=== PATIENT | female | born 1940 | race Caucasian/White ===

== ENCOUNTER 2025-04-02 13:03 | Emergency (ER) | payer OTHER, SELFPAY ==
[2025-04-02 13:05] VITALS: BP 153/80; PULSE 82; RESP 14; TEMP 36.9; O2SAT 99; BMI 21.7
--- NOTE | 2025-04-02 14:00 | CT_ITS ---
PROCEDURE: ABDOMEN/PELVIS W IV CONT ONLY 04/02/2025 REASON FOR EXAM: CONSTIAPTION, RECTAL PAIN TECHNIQUE: Procedure Code: [id number] Modality: CT Procedure: ABDOMEN/PELVIS W IV CONT ONLY Coronal and Sagittal reconstruction series were provided. CONTRAST: Isovue 370 VOLUME: 83 mL One or more dose reduction techniques were used (e.g., Automated exposure control, adjustment of the mA and/or kV according to patient size, use of iterative reconstruction technique. RADIATION DOSE SUMMARY: CTDlvol: 18.62 mGy DLP: 814.03 mGycm COMPARISON: None. FINDINGS: Lung bases: Clear. Liver: Unremarkable. Gallbladder: Status post cholecystectomy. Spleen: Unremarkable. Pancreas: Unremarkable. Adrenals: Unremarkable. Kidneys: Bilateral simple kidney cysts with the largest measures 11 mm at the upper pole of the right kidney. No hydronephrosis. No nephrolithiasis. Bladder: Unremarkable. Reproductive Organs: Bowel: Large amount of fecal load in the colon. No bowel wall thickening. Appendix: Unremarkable. Lymph nodes: No lymphadenopathy. Vasculature: Atherosclerotic calcifications of the aorta and iliac arteries. No aneurysm. Peritoneum / Retroperitoneum: No free air or free fluid. Bones: Multilevel degenerate changes of the lumbar spine. No acute bony abnormalities. CT/Abdomen/Pelvis W IV Cont ONLY IMPRESSION: No acute abdominopelvic abnormalities. Reading Location: [facility]
[2025-04-02 14:38] LABS: Hematocrit 36.4 % (37-47); Hemoglobin 11.8 g/dL (12.0-15.0); Immature Granulocytes Count 0.030 X10^3/uL (0.0-0.0); Mean Corp Hgb Conc 32.4 g/dL (32-36); Mean Corpuscular Volume 94.1 fL (81-99); Mean Platelet Vol. 10.1 fl (6.2-12.0); NRBC Flagged by Analyzer 0 % (0-5); Platelet Count 271 K/mm3 (150-450); RBC Distribution Width CV 14.7 % (11.6-14.6); RBC Distribution Width SD 51.1 fl (35.1-43.9); Red Blood Count 3.87 M/mm3 (4.2-5.4); White Blood Count 10.0 K/mm3 (4.4-11.0)
[2025-04-02 14:57] LABS: AST(SGOT) 15 U/L (<=31); Alanine Aminotransfer ALT/SGPT 7 U/L (<=34); Albumin, Serum 3.9 g/dL (3.4-4.8); Alkaline Phosphatase 55 U/L (35-104); Anion Gap 11 (5-15); BUN 10 mg/dL (4-19); BUN/Creat Ratio 22.9 RATIO (10-20); Calcium,Total 10.1 mg/dL (7.6-11.0); Carbon Dioxide 23.7 mmol/L (21.0-32.0); Chloride 105 mmol/L (98-108); Estimated Creatinine Clearance 47.25 ml/min (50-250); Globulin 3.8 g/dL (2.2-4.2); Glucose 86 mg/dL (70-99); Potassium 3.9 mmol/L (3.3-5.1)
[2025-04-02 15:04] VITALS: BP 179/78; PULSE 68; RESP 18; O2SAT 98
--- NOTE | 2025-04-02 16:20 | EX.ED.DYSGE1 ---
HPI History of Present Illness Chief Complaint: Other, Pain/Inj Informant: patient and family Narrative Narrative: Patient is an 84-year-old female presenting with constipation and rectal pain/pressure. She also she is having some mild right sided flank pain with this. States her last bowel movement is a week and a half ago. Notes she had a recent admission at [facility] for constipation and partial small bowel obstruction. Her hospital course was complicated by urinary retention however this was treated with decompression, enterocolitis which improved with treatment in the ER and a lower GI bleed that was stable. Patient states since being discharged (02/24/2025), she has only intermittently taken her MiraLAX and has not been taking it daily. She notes that she was also tried to take Pepto-Bismol 3 times a day for 2 weeks for the enterocolitis that was seen on her CT. Patient denies any fever or chills currently but that she maybe had a fever yesterday. States that her pain started this morning. Denies any vaginal bleeding. Denies any nausea or vomiting. Denies any urinary symptoms. Believes that she has had her gallbladder removed in the past. PFSH PFSH Allergy/AdvReac Type Severity Reaction Status Date / Time No Known Allergies Allergy Verified 04/02/25 13:08 Social History Smoking Status: Never smoker ROS ROS ED Constitutional Constitutional ED: Reports fever(s); Denies chills Gastrointestinal Gastrointestinal: Reports abdominal pain, constipation and other Details: Rectal pain ; Denies melena, nausea or vomiting Genitourinary Genitourinary ED: Denies dysuria or hematuria Neurologic Neurologic: Denies weakness Psychiatric Psychiatric: Denies anxiety Hematologic/Lymphatic Hematologic/Lymphatic: Denies easy bleeding or easy bruising EXAM Physical Exam Const Vital Signs: 04/02/25 13:05 04/02/25 15:04 Temperature 98.4 F Temperature Source Oral Pulse Rate 82 68 Respiratory Rate 14 18 Blood Pressure 153/80 H 179/78 H Blood Pressure Mean 104 111 Pulse Ox 99 98 Oxygen Delivery Method Room Air Room Air Positive well nourished and well developed General Appearance ED: well developed and NAD HEENT Reports moist mucous membranes Neck supple Resp normal respiratory effort and clear to auscultation bilaterally Cardio regular rate and regular rhythm GI normal to inspection, nondistended, normoactive bowel sounds and non-tender GI Narrative: Chaperoned rectal exam performed. Patient has fecal impaction a large amount of dark/green stool was removed. No hemorrhoids or bright red blood present. No palpable abscess or fluctuance appreciated. Auscultation: hyperactive bowel sounds Palpation: soft; Negative for tender Neuro oriented x3 Sensorium / Orientation: alert Psych mental status grossly normal Skin no rashes or lesions noted and no wounds MDM MDM MDM Narrative Medical decision making narrative: Patient evaluated for constipation and rectal pain. Differential includes bowel obstruction, perirectal abscess, hemorrhoids and fecal impaction. On rectal exam patient has dark stool consistent with taking Pepto-Bismol and a fecal impaction. She is disimpacted which she tolerates reasonably well. After that symptomatically she is much improved. Because of her recent admission, a partial bowel obstruction and concern for possible underlying perirectal abscess or proctitis lab including CBC and CMP is obtained. She has a mild anemia with a hemoglobin 11.6. Her BUN is normal and lower suspicion for occult GI bleeding. She is not on any anticoagulation. Lower suspicion for occult GI bleeding. CT of abdomen pelvis shows signs of constipation but no acute abdominal process. On repeat evaluation she states that she is feeling much better when she walks and her rectal pressure/discomfort is resolved. Will give soapsuds enema for further treatment of her constipation and discharged home with outpatient follow-up as well as instructions to restart her MiraLAX with a more aggressive cleanout. Patient is agreeable this plan of care. Given return precautions. Discharged home in stable condition peer this time I think she can stop the Pepto-Bismol. Case was discussed with patient's PCP as she was sent in from his office. He is agreeable with this plan of care. History & Record Review Additional record(s) reviewed:: Prior inpatient record (Discharge summary from 02/24/2025 at [facility]) Lab Data Attestation: I reviewed the patient's lab results. Labs: Laboratory Results - last 24 hr 04/02/25 14:20 WBC 10.0 RBC 3.87 L Hgb 11.8 L Hct 36.4 L MCV 94.1 MCH 30.5 MCHC 32.4 RDW Std Deviation 51.1 H RDW Coeff of Perry 14.7 H Plt Count 271 MPV 10.1 Immature Gran % (Auto) 0.300 Neut % (Auto) 69.9 Lymph % (Auto) 23.6 Harvey % (Auto) 5.3 Eos % (Auto) 0.5 Baso % (Auto) 0.4 Absolute Neuts (auto) 7.0 Absolute Lymphs (auto) 2.37 Nucleated RBC % 0 Sodium 139 Potassium 3.9 Chloride 105 Carbon Dioxide 23.7 Anion Gap 11 BUN 10 Creatinine 0.45 L Estim Creat Clear Calc 47.25 L Est GFR (MDRD) Non-Af 93 BUN/Creatinine Ratio 22.9 H Glucose 86 Calcium 10.1 Total Bilirubin 0.37 AST 15 ALT 7 Alkaline Phosphatase 55 Total Protein 7.7 Albumin 3.9 Globulin 3.8 Albumin/Globulin Ratio 1.0 Radiography Diagnostic Testing: Clinical Impression(s) from Imaging Studies Abdomen/Pelvis CT 04/02/25 14:00 IMPRESSION: No acute abdominopelvic abnormalities. Reading Location: [facility] Management Discussion w/another healthcare provider: PCP Discharge Plan Triage Chief Complaint: Other, Pain/Inj ED Provider: Daniella Sanchez Dx/Rx/DC Orders Clinical Impression: Fecal impaction in rectum, Constipation Instructions: ED Constipation (Adult), ED Fecal Impaction, Treated Primary Care Provider: Aayush Syed Referrals: Aayush Syed MD [Primary Care Provider] - Activity Restrictions/Additional Instructions: Please start taking a capful of MiraLAX twice a day until you are having regular bowel movements. You may go to once a day if you start having diarrhea with it. If you do not have good results with that I suggest buying magnesium citrate which is available [id number] and drinking half of the bottle (150 mL) to elicit a bowel movement. He may drink the other half the bottle 4 hours later with no results. Please stop taking the Pepto-Bismol at this point. I do not think you need it anymore. Print Language: Japanese Disposition Disposition: Home, Self Care
[2025-04-02 16:37] VITALS: BP 173/61; PULSE 55; RESP 18; TEMP 36.6; O2SAT 96
== END 2025-04-02 17:03 | disposition home or self-care (01) ==
PROVIDERS: Emergency Provider Emergency Medicine; PCP Family Medicine; Visit Provider Emergency Medicine
DX: K56.41 Fecal impaction (principal)
CPT/HCPCS: 74177; 80053; 85025; 99284; Q9967; A4216